=== PATIENT | male | born 1950 | race Caucasian/White ===

== ENCOUNTER 2016-04-24 08:16 | Emergency (ER) | payer OTHER ==
[~2016-04-24] VITALS: Ht 190.5 cm; Wt 104.9 kg
[~2016-04-24 08:16] MED LIST: Bactrim,Septra DS 80 PO; CELEBREX200 MG PO; CELEXA20 MG PO; K-Dur PO; KLONOPIN0.5 M1 PO; KlonoPIN PO; METHADONE10 MG PO; MILK OF MAGN PO; MOTRIN IB200 MG PO; Methadone PO; Milk Of Magnesia,MOM PO; OXYCONTIN30 MG PO; OxyCODONE PO; OxyCONTIN PO; PriLOSEC PO; REMERON30 M2 PO; Remeron PO; SYNTHROID50 MCG PO; celeXA PO
[2016-04-24 09:25] LABS: BASOPHIL COUNT 0.1 K/uL (0-0.1); EOSINOPHIL (%) 1.2 % (0-5); EOSINOPHIL COUNT 0.1 K/uL (0-0.3); HEMATOCRIT 43.1 % (38.0-50.0); IMMATURE GRANULOCYTE (%) 0.1 % (0.0-0.7); IMMATURE GRANULOCYTE COUNT 0.1 K/uL; LYMPHOCYTE COUNT 1.7 K/uL (1.0-2.8); MCH 29.9 PG (29.0-34.0); MCHC 33.9 G/DL (30.0-36.0); MCV 88.1 FL (86-99); MEAN PLAT.VOLUME 10.3 uM^3 (9.0-12.4); MONOCYTE (%) 5.5 % (3-12); MONOCYTE COUNT 0.6 K/uL (0-0.8); PLATELET COUNT 238 K/uL (156-360); RBC DIS.WIDTH-CV 13.2 % (11.8-14.6); RBC DIS.WIDTH-SD 42.2 % (39-53); RED BLOOD COUNT 4.89 M/uL (4.00-5.50); WHITE BLOOD COUNT 11.5 K/uL (4.1-10.2)
[2016-04-24 09:34] LABS: CHLORIDE 109 mEq/L (99-109); POTASSIUM 4.1 mEq/L (3.7-5.4); SODIUM 141 mEq/L (136-147)
[2016-04-24 09:36] LABS: GLUCOSE 103 mg/dL (70-99)
[2016-04-24 09:37] LABS: ANION GAP 9 MEQ/L (2-14)
[2016-04-24 09:37] LABS: D-DIMER ELISA 0.37 mg/L FEU (< 0.57); PROTHROMBIN TIME 10.4 (9.2-11.2); PTT 28.8 (25-32)
[2016-04-24 09:40] LABS: GFR ESTIMATE (CALCULATED) > 59 mL/min/
[2016-04-24 09:41] LABS: UREA NITROGEN (BUN) 14 mg/dL (9-23)
[2016-04-24 09:46] LABS: TROP-I INTERPRETATION NEGATIVE; TROPONIN-I 0.05 ng/mL (0.0-0.30)
[2016-04-24 12:55] LABS: TROP-I INTERPRETATION NEGATIVE; TROPONIN-I 0.09 ng/mL (0.0-0.30)
[2016-04-24 13:21] VITALS: BP 114/62
== END 2016-04-24 13:23 | disposition home or self-care (01) ==
LOC: EME 08:16
PROVIDERS: Emergency Medicine
DX: R07.89 Other chest pain (principal); F41.9 Anxiety disorder, unspecified; Z87.891 Personal history of nicotine dependence; M54.9 Dorsalgia, unspecified; G89.29 Other chronic pain
CPT/HCPCS: 71010; 80048; 83880; 84484; 85025; 85379; 85610; 85730; 93005; 99281; 99284

== ENCOUNTER 2016-12-16 22:00 | Emergency (ER) | payer OTHER ==
[~2016-12-16] VITALS: Ht 198.1 cm; Wt 113.7 kg
[2016-12-17 01:49] VITALS: BP 142/74
== END 2016-12-17 01:49 | disposition home or self-care (01) ==
LOC: EME 22:00
DX: S83.91XA Sprain of unspecified site of right knee, initial encounter (principal); S80.01XA Contusion of right knee, initial encounter; M79.89 Other specified soft tissue disorders; W18.30XA Fall on same level, unspecified, initial encounter; F32.9 Major depressive disorder, single episode, unspecified; K21.9 Gastro-esophageal reflux disease without esophagitis; F41.9 Anxiety disorder, unspecified; Z87.891 Personal history of nicotine dependence
CPT/HCPCS: 73564; 73590; 93971; 99281; 99284